=== PATIENT | male | born 1995 | race Caucasian/White ===

== ENCOUNTER 2019-03-24 16:54 | Emergency (ER) | payer SELFPAY ==
[~2019-03-24] VITALS: Ht 188 cm; Wt 90.9 kg
[2019-03-24 17:23] VITALS: Ht 188 cm; Wt 90.9 kg
[2019-03-24 19:27] VITALS: BP 112/89
== END 2019-03-24 19:34 | disposition left against medical advice (07) ==
LOC: D.ER 16:54
DX: R20.0 Anesthesia of skin (principal)